=== PATIENT | male | born 1970 | race Caucasian/White ===

== ENCOUNTER 2022-08-31 11:00 | Inpatient (IN) | payer SELFPAY ==
[2022-08-31] MEDS ORDERED: Sodium Chloride 0.9% 1,000 ML IV ONE ×2 (11:27→14:14)
[2022-08-31] MEDS ORDERED: Ondansetron 4 MG/2 ML SDV IVPUSH ONE (11:27)
[2022-08-31] MEDS ORDERED: Sodium Chloride 0.9% 10 ML Syringe FLUSH PRN (11:28)
[2022-08-31] MEDS ORDERED: LORazepam 2 MG/ML SDV IVPUSH ONE (11:28)
[2022-08-31 12:22] LABS: ESTIMATED GFR 91 mL/min (>60)
[2022-08-31] MEDS ORDERED: Metoclopramide 10 MG/2 ML SDV IVPUSH ONE (14:33)
[2022-08-31] MEDS ORDERED: Thiamine 100 MG in Sodium Chloride 0.9% 100 ML IV ONE (15:00)
[2022-08-31] MEDS ORDERED: Morphine 2 MG/ML SYRINGE IVPUSH PRN (15:00)
[2022-08-31] MEDS ORDERED: LORazepam 2 MG/ML SDV IVPUSH PRN (15:00)
[2022-08-31] MEDS: Folic Acid 50 MG/10 ML MDV IV SCH (17:12)
[2022-08-31] MEDS: Ondansetron 4 MG/2 ML SDV IV PRN ×2 (17:12→21:28)
[2022-08-31] MEDS: Heparin Sodium 5,000 Units/ML Vial SUBCUT SCH (17:13)
[2022-08-31] MEDS: LORazepam 2 MG/ML SDV IVPUSH PRN (17:13)
[2022-08-31] MEDS: Sodium Chloride 0.9% 1,000 ML IV SCH (17:14)
[2022-08-31] MEDS: Pantoprazole 40 MG Vial IV SCH (20:29)
[2022-08-31] MEDS: oxyCODONE 5 MG Tab PO PRN (20:36)
[2022-08-31] MEDS ORDERED: Pantoprazole 40 MG in Sodium Chloride 0.9% 100 ML IV SCH (21:00)
[2022-09-01] MEDS: Heparin Sodium 5,000 Units/ML Vial SUBCUT SCH ×3 (00:03→15:01)
[2022-09-01] MEDS: Sodium Chloride 0.9% 1,000 ML IV SCH ×3 (01:12→17:13)
[2022-09-01] MEDS: LORazepam 2 MG/ML SDV IVPUSH PRN ×7 (01:16→19:45)
[2022-09-01] MEDS: Ondansetron 4 MG/2 ML SDV IV PRN ×5 (03:09→21:10)
[2022-09-01] MEDS: oxyCODONE 5 MG Tab PO PRN ×4 (03:09→21:11)
[2022-09-01] MEDS ORDERED: Calcium Chloride 10% 1 GM/10 ML Syringe IVPUSH ONE (06:35)
[2022-09-01] MEDS ORDERED: Furosemide 20 MG/2 ML VIAL IVPUSH ONE (06:36)
[2022-09-01] MEDS: Sodium Polystyrene Sulfonate 15 GM/60 ML Susp 60 ML Bot PO SCH ×2 (07:43→12:31)
[2022-09-01] MEDS: Pantoprazole 40 MG Vial IV SCH ×2 (08:00→20:00)
[2022-09-01] MEDS: Nicotine 14 MG/24 Hr Patch TRDERM SCH (08:00)
[2022-09-01] MEDS: Thiamine 200 MG/2 ML MDV IV SCH (08:21)
[2022-09-01] MEDS: Folic Acid 50 MG/10 ML MDV IV SCH (08:21)
[2022-09-01] MEDS ORDERED: Thiamine 100 MG in Sodium Chloride 0.9% 100 ML IV SCH (09:00)
[2022-09-01 13:26] LABS: ESTIMATED GFR 73 mL/min (>60)
[2022-09-02] MEDS: LORazepam 2 MG/ML SDV IVPUSH PRN ×6 (00:45→19:06)
[2022-09-02] MEDS: oxyCODONE 5 MG Tab PO PRN ×3 (02:10→20:15)
[2022-09-02] MEDS: Sodium Chloride 0.9% 1,000 ML IV SCH ×3 (03:32→15:07)
[2022-09-02 05:31] LABS: ESTIMATED GFR 73 mL/min (>60)
[2022-09-02] MEDS ORDERED: Magnesium Sulfate/Water 4 GM in Premix Bag 1 BAG IV ONE (06:08)
[2022-09-02 07:27] LABS: HEMOGLOBIN A1C 5.7 %
[2022-09-02] MEDS: Pantoprazole 40 MG Vial IV SCH ×2 (08:02→20:16)
[2022-09-02] MEDS: Thiamine 200 MG/2 ML MDV IV SCH (08:02)
[2022-09-02] MEDS: Nicotine 14 MG/24 Hr Patch TRDERM SCH (08:12)
[2022-09-02] MEDS: Folic Acid 50 MG/10 ML MDV IV SCH (08:22)
[2022-09-02] MEDS: Enoxaparin 40 MG/0.4 ML Syringe SUBCUT SCH (09:38)
[2022-09-02] MEDS: Ondansetron 4 MG/2 ML SDV IV PRN (15:18)
[2022-09-03] MEDS: LORazepam 2 MG/ML SDV IVPUSH PRN ×12 (01:50→23:16)
[2022-09-03 06:28] LABS: ESTIMATED GFR 73 mL/min (>60)
[2022-09-03] MEDS: oxyCODONE 5 MG Tab PO PRN ×3 (07:50→22:08)
[2022-09-03] MEDS: Sodium Chloride 0.9% 1,000 ML IV SCH (07:52)
[2022-09-03] MEDS: Thiamine 200 MG/2 ML MDV IV SCH (09:19)
[2022-09-03] MEDS: Nicotine 14 MG/24 Hr Patch TRDERM SCH (09:19)
[2022-09-03] MEDS: Pantoprazole 40 MG Vial IV SCH ×2 (09:19→20:09)
[2022-09-03] MEDS: Folic Acid 50 MG/10 ML MDV IV SCH (09:22)
[2022-09-03] MEDS: Enoxaparin 40 MG/0.4 ML Syringe SUBCUT SCH (09:33)
[2022-09-03] MEDS: Ondansetron 4 MG/2 ML SDV IV PRN (13:21)
[2022-09-03] MEDS: atorvaSTATin 40 MG Tab PO SCH (20:09)
[2022-09-04] MEDS ORDERED: Magnesium Sulfate/Water 2 GM in Premix Bag 1 BAG IV ONE (07:30)
[2022-09-04] MEDS ORDERED: oxyCODONE 5 MG Tab PO PRN (08:12)
[2022-09-04] MEDS ORDERED: Acetaminophen 325 MG Tab PO PRN (08:12)
[2022-09-04] MEDS: Multivitamin Tab PO SCH (08:13)
[2022-09-04] MEDS: Pantoprazole 40 MG Vial IV SCH ×2 (08:14→21:21)
[2022-09-04] MEDS: Nicotine 14 MG/24 Hr Patch TRDERM SCH (08:22)
[2022-09-04] MEDS ORDERED: Thiamine 100 MG Tab PO SCH (21:00)
[2022-09-04] MEDS: atorvaSTATin 40 MG Tab PO SCH (21:22)
[2022-09-04] MEDS: LORazepam 2 MG/ML SDV IVPUSH PRN (21:32)
[2022-09-05] MEDS: Multivitamin Tab PO SCH (08:20)
[2022-09-05] MEDS: Nicotine 14 MG/24 Hr Patch TRDERM SCH (08:20)
[2022-09-05] MEDS: Pantoprazole 40 MG Vial IV SCH (08:20)
[2022-09-05 12:21] VITALS: BP 135/87; PULSE 79
== END 2022-09-05 13:52 | disposition home or self-care (01) | DRG 897 ==
LOC: JD.ED 11:00 → JD.ICU 15:03 → JD.MS 09-05 00:20
PROVIDERS: ADMIT Internal Medicine; ATTEND Internal Medicine
DX: F10.239 Alcohol dependence with withdrawal, unspecified (principal); E83.51 Hypocalcemia; E86.0 Dehydration; E87.5 Hyperkalemia; E66.9 Obesity, unspecified; I10 Essential (primary) hypertension; F41.9 Anxiety disorder, unspecified; F32.A Depression, unspecified; F17.200 Nicotine dependence, unspecified, uncomplicated; Z96.641 Presence of right artificial hip joint; E78.1 Pure hyperglyceridemia; R56.9 Unspecified convulsions; Z79.899 Other long term (current) drug therapy; Z86.16 Personal history of COVID-19; Z68.39 Body mass index [BMI] 39.0-39.9, adult
CPT/HCPCS: 36415; 70450; 70450-26; 71045; 71045-26; 76705; 76705-26; 80048; 80053; 80061; 80306; 81003; 83036; 83735; 85025; 85027; 85610; 93005; 93010; 96361; 96374; 96375; 97116-GP; 97162-GP; 97166-GO; 97530-GO; 97530-GP; 99284; 99285-25; A9270-GY; C9113; J1644; J1650; J1940; J2060; J2405; J2765; J3411; J3475; J3490; J7030